=== PATIENT | male | born 1960 ===

== ENCOUNTER 2023-10-18 11:47 | Outpatient (CLI) | payer MEDICARE, BC, SELFPAY | END 2023-10-18 11:48 | disposition home or self-care (01) | LOC: LKVREF 11:51 | PROVIDERS: PCP Family Medicine; Visit Provider Family Medicine | DX: K57.90 Diverticulosis of intestine, part unspecified, without perforation or abscess without bleeding (principal) | CPT/HCPCS: 86258; 86364 ==

== ENCOUNTER 2023-11-16 22:16 | Outpatient (REF) | payer MEDICARE, BC, SELFPAY ==
[2023-11-16 22:56] LABS: Basophils Percent Auto 0.4 % (0.0-3.0); Eosinophils Percent Auto 0.6 % (0.0-7.0); Hematocrit 36.6 % (37.0-53.0); Immature Granulocytes Pct Auto 8.5 %; Lymphocytes Percent Auto 20.4 % (20-44); Mean Corpuscular HGB Conc 33 gm/dL (32-36); Mean Corpuscular Hemoglobin 29 pg (26-34); Mean Corpuscular Volume 90 fL (80-100); Neutrophils Percent Auto 69.1 % (42.0-72.0); Platelet Count* 327 K/uL (140-440); RDW Coefficient of Variation % 13.9 % (11.5-15.5); Red Blood Count 4.09 m/uL (4.30-5.90); White Blood Count* 16.25 K/uL (4.50-11.00)
[2023-11-16 22:58] LABS: Slide Review Reflex No
== END 2023-11-16 22:17 | disposition home or self-care (01) ==
LOC: NPINS 22:16
PROVIDERS: PCP Family Medicine; Visit Provider Student in an Organized Health Care Education/Training Program
DX: R30.0 Dysuria (principal)
CPT/HCPCS: 85025

== ENCOUNTER 2023-11-23 11:34 | Outpatient (CLI) | payer MEDICARE, BC, SELFPAY | END 2023-11-23 11:35 | disposition home or self-care (01) | LOC: LKVREF 11:34 | PROVIDERS: PCP Family Medicine; Visit Provider Family Medicine | DX: R30.0 Dysuria (principal) | CPT/HCPCS: 87086 ==

== ENCOUNTER 2024-04-16 11:12 | Outpatient (CLI) | payer MEDICARE, BC, SELFPAY | END 2024-04-16 11:13 | disposition home or self-care (01) | PROVIDERS: PCP Family Medicine; Visit Provider Family Medicine | DX: Z00.00 Encounter for general adult medical examination without abnormal findings (principal); E11.9 Type 2 diabetes mellitus without complications; E78.5 Hyperlipidemia, unspecified; I10 Essential (primary) hypertension; C85.80 Other specified types of non-Hodgkin lymphoma, unspecified site; E11.42 Type 2 diabetes mellitus with diabetic polyneuropathy; R63.5 Abnormal weight gain; Z13.29 Encounter for screening for other suspected endocrine disorder; Z12.5 Encounter for screening for malignant neoplasm of prostate | CPT/HCPCS: 80053; 80061; 84443; G0103 ==

== ENCOUNTER 2024-05-04 12:46 | Outpatient (CLI) | payer MEDICARE, BC, SELFPAY | END 2024-05-04 12:47 | disposition home or self-care (01) | LOC: NFLDREF 05-05 19:26 | PROVIDERS: PCP Family Medicine; Referring Provider Family Medicine; Visit Provider Family Medicine | DX: R30.0 Dysuria (principal); N39.0 Urinary tract infection, site not specified; E11.42 Type 2 diabetes mellitus with diabetic polyneuropathy; C91.10 Chronic lymphocytic leukemia of B-cell type not having achieved remission | CPT/HCPCS: 87086; 87186 ==

== ENCOUNTER 2024-10-22 15:53 | Outpatient (CLI) | payer MEDICARE, BC, SELFPAY | END 2024-10-22 15:54 | disposition home or self-care (01) | PROVIDERS: PCP Family Medicine; Visit Provider Family Medicine | DX: R10.9 Unspecified abdominal pain (principal); R63.5 Abnormal weight gain | CPT/HCPCS: 84439; 84443 ==

== ENCOUNTER 2025-03-19 07:00 | Outpatient (CLI) | payer MEDICARE, BC, SELFPAY ==
--- NOTE | 2025-03-19 07:15 | CRLHL7_ITS ---
For Patients: As a result of the Century Cures Act, medical imaging exams and procedure reports are released immediately into your electronic medical record. You may view this report before your referring provider. If you have questions, please contact your health care provider. INDICATION: Low back pain. TECHNIQUE: Lumbar spine MRI was performed without the administration of intravenous contrast. COMPARISON: : Abdomen and pelvis CT 09/01/2023, MR lumbar plexus 12/19/2014. FINDINGS: There is normal lumbar alignment. No STIR hyperintensity to suggest an acute fracture or ligamentous injury. No suspicious marrow replacement. The vertebral body heights are maintained. Multilevel degenerative changes including disc space height loss and early endplate changes. Multilevel moderate/severe facet joint hypertrophy. The visualized spinal cord and cauda equina nerve roots are within normal limits. Significant findings by level: T12-L1: No significant spinal canal or neural foraminal narrowing. L1-L2: No significant spinal canal or neural foraminal narrowing. L2-L3: Mild spinal canal stenosis and mild left neural foraminal stenosis with abutment of the exiting left L2 nerve root due to disc space height loss, disc bulge, ligamentum flavum thickening, and facet joint hypertrophy. No significant neural foraminal narrowing. L3-L4: Mild spinal canal stenosis due to disc bulge and facet joint hypertrophy. No significant neural foraminal narrowing. L4-L5: Mild spinal canal stenosis due to disc bulge, ligamentum flavum thickening, and facet joint hypertrophy. No significant neural foraminal narrowing. L5-S1: Mild spinal canal stenosis and partial effacement of the lateral recesses with possible abutment of the descending S1 nerve roots due to disc bulge and facet joint hypertrophy. No significant neural foraminal narrowing. Atrophy of the visualized left psoas muscle. IMPRESSION: 1. No evidence of acute fracture or malalignment. 2. Mild spinal canal stenosis at L2-L3, L3-L4, L4-L5, and L5-S1. 3. Partial effacement of the lateral recesses at L5-S1 with possible abutment of the descending S1 nerve roots. 4. Mild neuroforaminal stenosis on the left at L2-L3 with abutment of the exiting left L2 nerve root. Dictated by Patel Botello MD @ 03/20/2025 6:49:01 AM (Electronically Signed)
== END 2025-03-19 07:01 | disposition home or self-care (01) ==
PROVIDERS: PCP Family Medicine; Visit Provider Family Medicine
DX: M54.50 Low back pain, unspecified (principal); M48.062 Spinal stenosis, lumbar region with neurogenic claudication; M54.10 Radiculopathy, site unspecified
CPT/HCPCS: 72148

== ENCOUNTER 2025-05-14 08:58 | Outpatient (CLI) | payer MEDICARE, BC, SELFPAY | END 2025-05-14 08:59 | disposition home or self-care (01) | PROVIDERS: PCP Family Medicine; Visit Provider Family Medicine | DX: E11.42 Type 2 diabetes mellitus with diabetic polyneuropathy (principal); E78.2 Mixed hyperlipidemia | CPT/HCPCS: 80061; 80076; 84681 ==